=== PATIENT | male | born 1935 | race Hispanic/Latino ===

== ENCOUNTER 2017-10-28 15:27 | Emergency (ER) | payer MEDICARE, MEDICAID ==
[2017-10-28] MEDS ORDERED: DEXAMETHASONE SOD PHOSPHATE 10MG/ML 1ML VIAL ONE (16:38)
[2017-10-28] MEDS ORDERED: KETOROLAC TROMETHAMINE 30MG/ML ONE (16:39)
[2017-10-28] MEDS ORDERED: ORPHENADRINE CITRATE 30 MG/ML ML ONE (16:39)
== END 2017-10-28 17:32 | disposition home or self-care (01) ==
LOC: EDH 15:27
DX: M54.2 Cervicalgia (principal); G24.3 Spasmodic torticollis; I10 Essential (primary) hypertension; E11.9 Type 2 diabetes mellitus without complications; M19.90 Unspecified osteoarthritis, unspecified site; Z98.890 Other specified postprocedural states
CPT/HCPCS: 96372 ×3; 99284; J1100; J1885; J2360

== ENCOUNTER 2018-07-31 12:23 | Emergency (ER) | payer MEDICARE ==
[2018-07-31] MEDS ORDERED: LIDOCAINE HCL 2% JELLY 5 ML ONE (13:50)
== END 2018-07-31 13:57 | disposition home or self-care (01) ==
LOC: EDH 12:23
DX: K64.9 Unspecified hemorrhoids (principal); E11.9 Type 2 diabetes mellitus without complications; I10 Essential (primary) hypertension; M19.90 Unspecified osteoarthritis, unspecified site; Z98.890 Other specified postprocedural states

== ENCOUNTER → 2019-05-11 | Outpatient (CLI) | payer MEDICARE ==
[~2019-05-11] VITALS: Ht 177.8 cm; Wt 98.9 kg
[~2019-05-11] MED LIST: REGADENOSON 0.4 MG/5 ML PF SYG IVP SCH
== END | disposition home or self-care (01) ==
LOC: SHCH 08:18
PROVIDERS: ATTEND Internal Medicine Cardiovascular Disease
DX: I25.89 Other forms of chronic ischemic heart disease (principal); I20.9 Angina pectoris, unspecified
CPT/HCPCS: 78452; 93017; 96374; A9500 ×2; J2785

== ENCOUNTER 2019-06-03 05:35 | Day surgery (SDC) | payer MEDICARE ==
[2019-06-01 12:21] LABS: EOSINOPHILS % (AUTO) 2.9 % (0.0-8.0); HEMATOCRIT 37.6 % (42-54); LYMPHOCYTES % (AUTO) 16.4 % (21.0-51.0); MEAN CORPUSCULAR HEMOGLOBIN 26.6 pg (27.0-33.0); MEAN CORPUSCULAR HGB CONC 32.1 g/dL (32.0-36.0); MEAN CORPUSCULAR VOLUME 82.6 fL (79-99); MONOCYTES % (AUTO) 8.4 % (3.0-13.0); NEUTROPHILS % (AUTO) 71.3 % (40.0-77.0); PLATELET COUNT (AUTO) 244 K/uL (130-400); RED BLOOD CELL COUNT(AUTO) 4.55 MIL/uL (4.50-6.20); WHITE BLOOD COUNT (AUTO) 8.4 K/uL (4.8-10.8)
[2019-06-01 12:36] LABS: APPEARANCE,URINE Clear (CLEAR); BILIRUBIN,URINE Negative (NEGATIVE); COLOR,URINE Yellow (YELLOW); GLUCOSE, URINE (UA) >=1000 mg/dL (NEGATIVE); KETONES,URINE Negative (NEGATIVE); LEUKOCYTE ESTERASE ,URINE Negative (NEGATIVE); NITRATE,URINE Negative (NEGATIVE); OCCULT BLOOD,URINE Negative (NEGATIVE); PROTEIN,URINE Negative (NEGATIVE); UROBILINOGEN,URINE 0.2 mg/dL (0.2-1.0)
[2019-06-01 12:40] LABS: INR 1.09 (0.85-1.15); PARTIAL THROMBOPLASTIN TIME 26.4 SEC (26.3-35.5); PROTHROMBIN TIME 11.4 SEC (9.6-11.6)
[2019-06-01 12:49] LABS: BACTERIA,URINE Rare /HPF (None Seen); RBC,URINE 0-1 /HPF (0-1); SQUAMOUS EPITHELIAL CELL,UR Few /HPF (0-2); WBC,URINE 0-1 /HPF (0-1)
[2019-06-01 13:00] VITALS: BP 134/60
[2019-06-01 13:08] LABS: POTASSIUM 4.7 mmol/L (3.5-5.1)
[~2019-06-03] VITALS: Ht 172.7 cm; Wt 96.5 kg
[2019-06-03] VITALS (11 sets, daily range): BP systolic 130–145; BP diastolic 54–64
[~2019-06-03 05:35] MED LIST changes: +ASPI-1026 PO; +CLOP75TA32 PO; +DOXA4TAB3 PO; +EMPA10TA PO; +FINA5TAB41 PO; +GLIP10TA9 PO; +ISOS30TA6 PO; +LOSA25TA41 PO; +METF-445 PO; +METO25TA6 PO; -REGADENOSON 0.4 MG/5 ML PF SYG IVP SCH; +ROSU40TA21 PO; +SITA100T12 PO
[2019-06-03] MEDS ORDERED: SODIUM CHLORIDE 0.9% 1000ML 1,000 ML IV ONE (06:17)
--- NOTE | 2019-06-03 06:30 | NUR ---
ASSESSMENT PT HERE FOR PROCEDURE. DENIES ANY DISCOMFORT, PAIN.
[2019-06-03] MEDS ORDERED: NITROGLYCERIN 5 MG/ML 10 ML VIAL IV ONE (07:09)
[2019-06-03] MEDS ORDERED: LIDOCAINE HCL 2% 20ML ONE (07:09)
[2019-06-03] MEDS ORDERED: IOHEXOL-350 50ML VIAL IV ONE (07:09)
[2019-06-03] MEDS ORDERED: IOHEXOL 350 MG/ML 100ML INFUS..BTL IV ONE ×2 (07:09→07:46)
--- NOTE | 2019-06-03 07:16 | NUR ---
PROCEDURE PT TAKEN TO PROCEDURE VIA [employer] MANAGER. DENIES ANY PAIN
[2019-06-03] MEDS ORDERED: SODIUM CHLORIDE 0.9% 1000ML 1,000 ML IV SCH ×2 (08:00→08:11)
[2019-06-03] MEDS ORDERED: FENTANYL CITRATE PF 50 MCG/1 ML 2ML VIAL ONE (08:02)
[2019-06-03] MEDS ORDERED: METOPROLOL TARTRATE 1 MG/ML 5ML VIAL IV PRN (08:15)
[2019-06-03] MEDS ORDERED: GLUCAGON 1MG KIT 1 MG ML IM PRN (08:15)
[2019-06-03] MEDS ORDERED: NITROGLYCERIN 0.4 MG SL TAB SL PRN (08:15)
[2019-06-03] MEDS ORDERED: DEXTROSE 50%-WATER 50 ML DISP.SYRIN IV PRN (08:15)
--- NOTE | 2019-06-03 08:30 | NUR ---
ASSESSMENT RECEIVED PT FROM [employer] STAFF. PT LYING FLAT. INSTRUCTED ON IMPORTANCE OF KEEPING LEFT LEG FLAT AND NOT LIFTING HEAD UP OFF OF BED. PT ON BEDREST FOR 2 HOURS. URINAL OFFERED. BOTH PT AND PTS . VERBALIZED UNDERSTANDING.
[2019-06-03] MEDS ORDERED: INSULIN HUMULIN R 100 UNIT/ML 3ML ONE (09:03)
[2019-06-03] MEDS ORDERED: INSULIN HUMULIN R 100 UNIT/ML 3ML SQ SCH (11:30)
--- NOTE | 2019-06-03 14:30 | NUR ---
DISCHARGE ORAL AND WRITTEN DISCHARGE INSTRUCTIONS GIVEN TO PT AND PTS . NO OTHER QUESTIONS AT THIS TIME. DENIES ANY PAIN. AT THIS TIME. SITE TO RIGHT GROIN SOFT TO TOUCH. NO BLEEDING, OOZING NOTED TO SITE.
== END 2019-06-03 14:40 | disposition home or self-care (01) ==
LOC: DAH 05:35
PROVIDERS: ATTEND Internal Medicine Cardiovascular Disease
DX: R94.39 Abnormal result of other cardiovascular function study (principal); I25.118 Atherosclerotic heart disease of native coronary artery with other forms of angina pectoris; E78.5 Hyperlipidemia, unspecified; I10 Essential (primary) hypertension; E11.51 Type 2 diabetes mellitus with diabetic peripheral angiopathy without gangrene; Z98.890 Other specified postprocedural states; Z79.84 Long term (current) use of oral hypoglycemic drugs; Z79.01 Long term (current) use of anticoagulants; Z79.899 Other long term (current) drug therapy; Z87.891 Personal history of nicotine dependence; Z83.3 Family history of diabetes mellitus; Z82.49 Family history of ischemic heart disease and other diseases of the circulatory system
CPT/HCPCS: 36415; 71045; 80048; 81001; 82948 ×2; 85025; 85610; 85730; 93005; 93459; A4215; A4216; A4221; A4222; A4223 ×3; C1760; C1769; C1894 ×2; J1644; J1815; J3010; J3490 ×2; J7030; Q9965 ×2; Q9967 ×3

== ENCOUNTER → 2019-06-18 | Outpatient (CLI) | payer MEDICARE | END | disposition home or self-care (01) | LOC: RAH 13:53 | PROVIDERS: ATTEND Internal Medicine Cardiovascular Disease | DX: I72.4 Aneurysm of artery of lower extremity (principal); I97.610 Postprocedural hemorrhage of a circulatory system organ or structure following a cardiac catheterization | CPT/HCPCS: 76882 ==

== ENCOUNTER 2020-09-18 13:24 | Emergency (ER) | payer MEDICARE ==
[2020-09-18 14:28] LABS: BASOPHILS % (AUTO) 0.5 % (0.0-5.0); EOSINOPHILS % (AUTO) 0.8 % (0.0-8.0); HEMATOCRIT 38.1 % (42-54); LYMPHOCYTES % (AUTO) 18.2 % (21.0-51.0); MEAN CORPUSCULAR HEMOGLOBIN 26.9 pg (27.0-33.0); MEAN CORPUSCULAR HGB CONC 31.2 g/dL (32.0-36.0); MEAN CORPUSCULAR VOLUME 86.2 fL (79-99); MONOCYTES % (AUTO) 8.6 % (3.0-13.0); NEUTROPHILS % (AUTO) 71.5 % (40.0-77.0); PLATELET COUNT (AUTO) 231 K/uL (130-400); RED BLOOD CELL COUNT(AUTO) 4.42 MIL/uL (4.50-6.20); RED CELL DISTRIBUTION WIDTH 14.3 % (11.0-15.5); WHITE BLOOD COUNT (AUTO) 7.9 K/uL (4.8-10.8)
[2020-09-18 14:48] LABS: CREATININE 1.3 mg/dL (0.5-1.5); POTASSIUM 4.3 mmol/L (3.5-5.1)
[2020-09-18 14:53] LABS: ALBUMIN 3.6 g/dL (3.5-5.0); BILIRUBIN,TOTAL 0.5 mg/dL (0.2-1.0); TOTAL PROTEIN, SERUM 7.4 g/dL (6.0-8.3)
== END 2020-09-18 15:59 | disposition home or self-care (01) ==
LOC: EDH 13:24
DX: K64.4 Residual hemorrhoidal skin tags (principal); M19.90 Unspecified osteoarthritis, unspecified site; I10 Essential (primary) hypertension; E11.9 Type 2 diabetes mellitus without complications; Z90.49 Acquired absence of other specified parts of digestive tract; Z98.890 Other specified postprocedural states
CPT/HCPCS: 36415; 80053; 85025

== ENCOUNTER → 2021-01-23 | Outpatient (CLI) | payer OTHER, MEDICARE ==
[~2021-01-23] MED LIST changes: +ASPI-1012 PO; -ASPI-1026 PO; +Cefuroxime Axetil PO; -ISOS30TA6 PO; +LIDOCAINE HCL 2% JELLY 5 ML TP ONE
== END | disposition home or self-care (01) ==
LOC: WHH 13:00
PROVIDERS: ATTEND Family Medicine
DX: N45.4 Abscess of epididymis or testis (principal); E11.22 Type 2 diabetes mellitus with diabetic chronic kidney disease; I12.9 Hypertensive chronic kidney disease with stage 1 through stage 4 chronic kidney disease, or unspecified chronic kidney disease; N18.30 Chronic kidney disease, stage 3 unspecified; E11.40 Type 2 diabetes mellitus with diabetic neuropathy, unspecified; E11.51 Type 2 diabetes mellitus with diabetic peripheral angiopathy without gangrene; I25.10 Atherosclerotic heart disease of native coronary artery without angina pectoris; J81.1 Chronic pulmonary edema; I10 Essential (primary) hypertension; E78.5 Hyperlipidemia, unspecified; E66.9 Obesity, unspecified; M19.90 Unspecified osteoarthritis, unspecified site; D64.9 Anemia, unspecified; Z95.1 Presence of aortocoronary bypass graft; Z68.24 Body mass index [BMI] 24.0-24.9, adult
CPT/HCPCS: 11042; 36415; 82948; 84134; 86140; 87070; 87077; 87186; 97605

== ENCOUNTER → 2021-01-30 | Outpatient (CLI) | payer OTHER, MEDICARE | END | disposition home or self-care (01) | LOC: WHH 13:00 | PROVIDERS: ATTEND Family Medicine | DX: N45.4 Abscess of epididymis or testis (principal); E11.22 Type 2 diabetes mellitus with diabetic chronic kidney disease; I12.9 Hypertensive chronic kidney disease with stage 1 through stage 4 chronic kidney disease, or unspecified chronic kidney disease; N18.30 Chronic kidney disease, stage 3 unspecified; E11.40 Type 2 diabetes mellitus with diabetic neuropathy, unspecified; E11.51 Type 2 diabetes mellitus with diabetic peripheral angiopathy without gangrene; I25.10 Atherosclerotic heart disease of native coronary artery without angina pectoris; J81.1 Chronic pulmonary edema; I10 Essential (primary) hypertension; E78.5 Hyperlipidemia, unspecified; E66.9 Obesity, unspecified; M19.90 Unspecified osteoarthritis, unspecified site; D64.9 Anemia, unspecified; Z95.1 Presence of aortocoronary bypass graft; Z68.24 Body mass index [BMI] 24.0-24.9, adult | CPT/HCPCS: 11042; 97605 ==

== ENCOUNTER → 2021-02-06 | Outpatient (CLI) | payer OTHER, MEDICARE | END | disposition home or self-care (01) | LOC: WHH 13:00 | PROVIDERS: ATTEND Family Medicine | DX: N45.4 Abscess of epididymis or testis (principal); S31.30XD Unspecified open wound of scrotum and testes, subsequent encounter; E11.22 Type 2 diabetes mellitus with diabetic chronic kidney disease; I12.9 Hypertensive chronic kidney disease with stage 1 through stage 4 chronic kidney disease, or unspecified chronic kidney disease; N18.30 Chronic kidney disease, stage 3 unspecified; E11.40 Type 2 diabetes mellitus with diabetic neuropathy, unspecified; E11.51 Type 2 diabetes mellitus with diabetic peripheral angiopathy without gangrene; I25.10 Atherosclerotic heart disease of native coronary artery without angina pectoris; J81.1 Chronic pulmonary edema; I10 Essential (primary) hypertension; E78.5 Hyperlipidemia, unspecified; E66.9 Obesity, unspecified; M19.90 Unspecified osteoarthritis, unspecified site; D64.9 Anemia, unspecified; Z95.1 Presence of aortocoronary bypass graft; Z68.24 Body mass index [BMI] 24.0-24.9, adult; X58.XXXD Exposure to other specified factors, subsequent encounter | CPT/HCPCS: 11042 ==

== ENCOUNTER → 2021-02-13 | Outpatient (CLI) | payer OTHER, MEDICARE | END | disposition home or self-care (01) | LOC: WHH 13:00 | PROVIDERS: ATTEND Family Medicine | DX: N45.4 Abscess of epididymis or testis (principal); S31.30XD Unspecified open wound of scrotum and testes, subsequent encounter; E11.22 Type 2 diabetes mellitus with diabetic chronic kidney disease; I12.9 Hypertensive chronic kidney disease with stage 1 through stage 4 chronic kidney disease, or unspecified chronic kidney disease; N18.30 Chronic kidney disease, stage 3 unspecified; E11.40 Type 2 diabetes mellitus with diabetic neuropathy, unspecified; E11.51 Type 2 diabetes mellitus with diabetic peripheral angiopathy without gangrene; D64.9 Anemia, unspecified; I25.10 Atherosclerotic heart disease of native coronary artery without angina pectoris; E78.5 Hyperlipidemia, unspecified; E66.9 Obesity, unspecified; M19.90 Unspecified osteoarthritis, unspecified site; Z95.1 Presence of aortocoronary bypass graft; Z68.24 Body mass index [BMI] 24.0-24.9, adult; X58.XXXD Exposure to other specified factors, subsequent encounter | CPT/HCPCS: 11042; A6197; A6403 ==

== ENCOUNTER → 2021-02-20 | Outpatient (CLI) | payer OTHER, MEDICARE | END | disposition home or self-care (01) | LOC: WHH 13:20 | PROVIDERS: ATTEND Family Medicine | DX: N45.4 Abscess of epididymis or testis (principal); S31.30XD Unspecified open wound of scrotum and testes, subsequent encounter; E11.22 Type 2 diabetes mellitus with diabetic chronic kidney disease; I12.9 Hypertensive chronic kidney disease with stage 1 through stage 4 chronic kidney disease, or unspecified chronic kidney disease; N18.30 Chronic kidney disease, stage 3 unspecified; E11.40 Type 2 diabetes mellitus with diabetic neuropathy, unspecified; E11.51 Type 2 diabetes mellitus with diabetic peripheral angiopathy without gangrene; I25.10 Atherosclerotic heart disease of native coronary artery without angina pectoris; J81.1 Chronic pulmonary edema; I10 Essential (primary) hypertension; E78.5 Hyperlipidemia, unspecified; E66.9 Obesity, unspecified; M19.90 Unspecified osteoarthritis, unspecified site; D64.9 Anemia, unspecified; Z95.1 Presence of aortocoronary bypass graft; Z68.24 Body mass index [BMI] 24.0-24.9, adult; X58.XXXD Exposure to other specified factors, subsequent encounter | CPT/HCPCS: 11042; A6209; A6402 ==

== ENCOUNTER → 2021-02-27 | Outpatient (CLI) | payer OTHER, MEDICARE ==
[~2021-02-27] MED LIST changes: -LIDOCAINE HCL 2% JELLY 5 ML TP ONE
== END | disposition home or self-care (01) ==
LOC: WHH 13:15
PROVIDERS: ATTEND Family Medicine
DX: N45.4 Abscess of epididymis or testis (principal); S31.30XD Unspecified open wound of scrotum and testes, subsequent encounter; E11.22 Type 2 diabetes mellitus with diabetic chronic kidney disease; I12.9 Hypertensive chronic kidney disease with stage 1 through stage 4 chronic kidney disease, or unspecified chronic kidney disease; N18.30 Chronic kidney disease, stage 3 unspecified; E11.40 Type 2 diabetes mellitus with diabetic neuropathy, unspecified; E11.51 Type 2 diabetes mellitus with diabetic peripheral angiopathy without gangrene; I25.10 Atherosclerotic heart disease of native coronary artery without angina pectoris; J81.0 Acute pulmonary edema; I10 Essential (primary) hypertension; E78.5 Hyperlipidemia, unspecified; E66.9 Obesity, unspecified; M19.90 Unspecified osteoarthritis, unspecified site; D64.9 Anemia, unspecified; Z95.1 Presence of aortocoronary bypass graft; Z68.24 Body mass index [BMI] 24.0-24.9, adult; X58.XXXD Exposure to other specified factors, subsequent encounter
CPT/HCPCS: G0463

== ENCOUNTER → 2022-07-15 | Outpatient (CLI) | payer OTHER, MEDICARE ==
[~2022-07-15] MED LIST changes: -ASPI-1012 PO; -CLOP75TA32 PO; -Cefuroxime Axetil PO; -DOXA4TAB3 PO; -EMPA10TA PO; -FINA5TAB41 PO; -GLIP10TA9 PO; +LIDOCAINE HCL 4% LTA SOL 4 ML VIAL TP ONE; -LOSA25TA41 PO; -METF-445 PO; -METO25TA6 PO; -ROSU40TA21 PO; -SITA100T12 PO
== END | disposition home or self-care (01) ==
LOC: WHH 11:06
PROVIDERS: ATTEND Family Medicine
DX: T81.89XA Other complications of procedures, not elsewhere classified, initial encounter (principal); S31.501A Unspecified open wound of unspecified external genital organs, male, initial encounter; E11.22 Type 2 diabetes mellitus with diabetic chronic kidney disease; N18.30 Chronic kidney disease, stage 3 unspecified; E11.51 Type 2 diabetes mellitus with diabetic peripheral angiopathy without gangrene; E78.00 Pure hypercholesterolemia, unspecified; I25.10 Atherosclerotic heart disease of native coronary artery without angina pectoris; N40.0 Benign prostatic hyperplasia without lower urinary tract symptoms; M19.90 Unspecified osteoarthritis, unspecified site; E66.9 Obesity, unspecified; Z68.30 Body mass index [BMI] 30.0-30.9, adult; Z79.4 Long term (current) use of insulin; Z95.1 Presence of aortocoronary bypass graft; Z79.84 Long term (current) use of oral hypoglycemic drugs; Y83.8 Other surgical procedures as the cause of abnormal reaction of the patient, or of later complication, without mention of misadventure at the time of the procedure; X58.XXXA Exposure to other specified factors, initial encounter; Y93.89 Activity, other specified; Y92.238 Other place in hospital as the place of occurrence of the external cause; Y99.8 Other external cause status
CPT/HCPCS: G0463; A6248; A4450

== ENCOUNTER → 2022-07-22 | Outpatient (CLI) | payer OTHER, MEDICARE | END | disposition home or self-care (01) | LOC: WHH 09:26 | PROVIDERS: ATTEND Family Medicine | DX: T81.89XD Other complications of procedures, not elsewhere classified, subsequent encounter (principal); S31.501D Unspecified open wound of unspecified external genital organs, male, subsequent encounter; E11.22 Type 2 diabetes mellitus with diabetic chronic kidney disease; I12.9 Hypertensive chronic kidney disease with stage 1 through stage 4 chronic kidney disease, or unspecified chronic kidney disease; N18.30 Chronic kidney disease, stage 3 unspecified; E11.51 Type 2 diabetes mellitus with diabetic peripheral angiopathy without gangrene; E78.00 Pure hypercholesterolemia, unspecified; I25.10 Atherosclerotic heart disease of native coronary artery without angina pectoris; N40.0 Benign prostatic hyperplasia without lower urinary tract symptoms; M19.90 Unspecified osteoarthritis, unspecified site; E66.9 Obesity, unspecified; Z68.30 Body mass index [BMI] 30.0-30.9, adult; Z79.4 Long term (current) use of insulin; Z95.1 Presence of aortocoronary bypass graft; Z79.84 Long term (current) use of oral hypoglycemic drugs; X58.XXXD Exposure to other specified factors, subsequent encounter; Y83.8 Other surgical procedures as the cause of abnormal reaction of the patient, or of later complication, without mention of misadventure at the time of the procedure | CPT/HCPCS: G0463 ==

== ENCOUNTER → 2022-07-29 | Outpatient (CLI) | payer OTHER, MEDICARE | END | disposition home or self-care (01) | LOC: WHH 09:17 | PROVIDERS: ATTEND Family Medicine | DX: T81.89XD Other complications of procedures, not elsewhere classified, subsequent encounter (principal); S31.501D Unspecified open wound of unspecified external genital organs, male, subsequent encounter; E11.22 Type 2 diabetes mellitus with diabetic chronic kidney disease; I12.9 Hypertensive chronic kidney disease with stage 1 through stage 4 chronic kidney disease, or unspecified chronic kidney disease; N18.30 Chronic kidney disease, stage 3 unspecified; E11.51 Type 2 diabetes mellitus with diabetic peripheral angiopathy without gangrene; E78.00 Pure hypercholesterolemia, unspecified; I25.10 Atherosclerotic heart disease of native coronary artery without angina pectoris; N40.0 Benign prostatic hyperplasia without lower urinary tract symptoms; M19.90 Unspecified osteoarthritis, unspecified site; E66.9 Obesity, unspecified; Z68.30 Body mass index [BMI] 30.0-30.9, adult; Z79.4 Long term (current) use of insulin; Z95.1 Presence of aortocoronary bypass graft; Z79.84 Long term (current) use of oral hypoglycemic drugs; X58.XXXD Exposure to other specified factors, subsequent encounter; Y83.8 Other surgical procedures as the cause of abnormal reaction of the patient, or of later complication, without mention of misadventure at the time of the procedure | CPT/HCPCS: G0463 ==

== ENCOUNTER → 2022-08-05 | Outpatient (CLI) | payer OTHER, MEDICARE | END | disposition home or self-care (01) | LOC: WHH 09:11 | PROVIDERS: ATTEND Family Medicine | DX: T81.89XD Other complications of procedures, not elsewhere classified, subsequent encounter (principal); S31.501D Unspecified open wound of unspecified external genital organs, male, subsequent encounter; E11.51 Type 2 diabetes mellitus with diabetic peripheral angiopathy without gangrene; E11.22 Type 2 diabetes mellitus with diabetic chronic kidney disease; I12.9 Hypertensive chronic kidney disease with stage 1 through stage 4 chronic kidney disease, or unspecified chronic kidney disease; N18.30 Chronic kidney disease, stage 3 unspecified; E78.00 Pure hypercholesterolemia, unspecified; I25.10 Atherosclerotic heart disease of native coronary artery without angina pectoris; E66.9 Obesity, unspecified; N40.0 Benign prostatic hyperplasia without lower urinary tract symptoms; M19.90 Unspecified osteoarthritis, unspecified site; Z79.4 Long term (current) use of insulin; Z95.1 Presence of aortocoronary bypass graft; Z79.84 Long term (current) use of oral hypoglycemic drugs; X58.XXXD Exposure to other specified factors, subsequent encounter; Y83.8 Other surgical procedures as the cause of abnormal reaction of the patient, or of later complication, without mention of misadventure at the time of the procedure | CPT/HCPCS: G0463 ==

== ENCOUNTER 2023-09-15 01:36 | Emergency (ER) | payer OTHER, MEDICARE ==
[~2023-09-15] VITALS: Ht 170.2 cm; Wt 79.4 kg
[2023-09-15 04:28] LABS: APPEARANCE,URINE TURBID (CLEAR); BACTERIA,URINE RARE /HPF (None Seen); BILIRUBIN,URINE NEGATIVE (NEGATIVE); COLOR,URINE LIGHT-ORANGE (YELLOW); GLUCOSE, URINE (UA) >=1000 mg/dL (NEGATIVE); KETONES,URINE 5 mg/dL (NEGATIVE); LEUKOCYTE ESTERASE ,URINE 500 Leu/uL (NEGATIVE); MUCUS,URINE MOD LPF (None Seen); NITRATE,URINE 1+ (NEGATIVE); OCCULT BLOOD,URINE NEGATIVE (NEGATIVE); PROTEIN,URINE 200 mg/dL (NEGATIVE); UROBILINOGEN,URINE 0.2 mg/dL (0.2-1.0); WBC,URINE 26-50 /HPF (0-1)
[2023-09-15] MEDS ORDERED: MACR100 PO (04:38)
[2023-09-15] MEDS ORDERED: TAMS-1 PO (04:38)
[2023-09-15] MEDS ORDERED: PHEN-847 PO (04:38)
[2023-09-15] MEDS ORDERED: CEPH500B PO (04:38)
[2023-09-15 05:00] VITALS: BP 127/49; PULSE 67; RESP 16; O2SAT 98
[2023-09-15] MEDS ORDERED: NITROFURANTOIN MONOHYD/M-CRYST 100 MG CAPSULE PO ONE (05:00)
[2023-09-15] MEDS ORDERED: PHENAZOPYRIDINE HCL 200 MG TABLET PO ONE (05:00)
[2023-09-15] MEDS ORDERED: CEPHALEXIN 500 MG CAPSULE PO ONE (05:00)
[2023-09-15] MEDS ORDERED: CEFTRIAXONE 2GM VIAL IVPB ONE (05:00)
[2023-09-15] MEDS ORDERED: TAMSULOSIN HCL 0.4 MG CAP.ER.24H PO ONE (05:00)
== END 2023-09-15 05:41 | disposition home or self-care (01) ==
LOC: EDH 01:36
DX: N39.0 Urinary tract infection, site not specified (principal); M19.90 Unspecified osteoarthritis, unspecified site; E11.9 Type 2 diabetes mellitus without complications; E78.00 Pure hypercholesterolemia, unspecified; I10 Essential (primary) hypertension; Z90.49 Acquired absence of other specified parts of digestive tract; Z95.1 Presence of aortocoronary bypass graft
CPT/HCPCS: 81001; 87077; 87088; 87186; J0696

== ENCOUNTER → 2023-10-23 | Outpatient (CLI) | payer OTHER, MEDICARE ==
[~2023-10-23] MED LIST changes: +CEPH500B PO; -LIDOCAINE HCL 4% LTA SOL 4 ML VIAL TP ONE; +MACR100 PO; +PHEN-847 PO; +TAMS-1 PO
== END | disposition home or self-care (01) ==
LOC: SHCH 09:01
PROVIDERS: ATTEND Internal Medicine Cardiovascular Disease
DX: I08.0 Rheumatic disorders of both mitral and aortic valves (principal); I11.9 Hypertensive heart disease without heart failure; I25.810 Atherosclerosis of coronary artery bypass graft(s) without angina pectoris; I20.9 Angina pectoris, unspecified; E11.9 Type 2 diabetes mellitus without complications; E78.5 Hyperlipidemia, unspecified; Z95.1 Presence of aortocoronary bypass graft
CPT/HCPCS: 93306

== ENCOUNTER 2024-02-25 08:06 | Day surgery (SDC) | payer OTHER, MEDICARE ==
[2024-02-25] VITALS (11 sets, daily range): BP systolic 122–165; BP diastolic 39–72; PULSE 41–53; RESP 10–16
[~2024-02-25] VITALS: Ht 177.8 cm; Wt 81.6 kg
[~2024-02-25 08:06] MED LIST changes: -CEPH500B PO; +CLOP75TA32 PO; +DAPA10TA PO; +FINA5TAB41 PO; +GLIP10TA9 PO; +LINA290C PO; -MACR100 PO; +METF-444 PO; +METO-408 PO; -PHEN-847 PO; +ROSU40TA70 PO; +SITA100T12 PO
[2024-02-25] MEDS: 0.9%NACL 1000ML 1,000 ML IV ONE (11:01)
[2024-02-25] MEDS ORDERED: LIDOCAINE HCL 400MG/20ML VIAL ONE (11:28)
[2024-02-25] MEDS ORDERED: PROPOFOL 10 MG/ML 20ML VIAL IV ONE (11:28)
== END 2024-02-25 13:30 | disposition home or self-care (01) ==
LOC: ENDO 08:06 → DAH 08:06 → ENDO 13:30
PROVIDERS: ATTEND Internal Medicine Gastroenterology
DX: D50.9 Iron deficiency anemia, unspecified (principal); K62.1 Rectal polyp; K63.89 Other specified diseases of intestine; K29.50 Unspecified chronic gastritis without bleeding; K59.04 Chronic idiopathic constipation; I25.10 Atherosclerotic heart disease of native coronary artery without angina pectoris; I10 Essential (primary) hypertension; E78.00 Pure hypercholesterolemia, unspecified; K64.8 Other hemorrhoids; E11.9 Type 2 diabetes mellitus without complications; M19.90 Unspecified osteoarthritis, unspecified site; Z79.84 Long term (current) use of oral hypoglycemic drugs; Z79.82 Long term (current) use of aspirin; Z79.899 Other long term (current) drug therapy; Z98.890 Other specified postprocedural states; Z90.49 Acquired absence of other specified parts of digestive tract
CPT/HCPCS: 82948; 43239; 45385; J3490; J7030 ×2; J2704; A4620; A4215 ×2; A4223; A7002; A4222; A4221; A4663; A4606

== ENCOUNTER → 2024-07-30 | Outpatient (CLI) | payer OTHER, MEDICARE ==
[~2024-07-30] MED LIST changes: +GLIP10TA16 PO; -GLIP10TA9 PO; -LINA290C PO; -ROSU40TA70 PO; +ROSU40TA88 PO
[2024-07-30] MEDS: REGADENOSON 0.4 MG/5 ML PF SYG IVP ONE (12:19)
== END | disposition home or self-care (01) ==
LOC: SHCH 08:07
PROVIDERS: ATTEND Internal Medicine Cardiovascular Disease
DX: I25.9 Chronic ischemic heart disease, unspecified (principal); I25.10 Atherosclerotic heart disease of native coronary artery without angina pectoris; R07.9 Chest pain, unspecified; R60.9 Edema, unspecified; I48.91 Unspecified atrial fibrillation
CPT/HCPCS: 78452; 93017; J2785; A9500 ×2